=== PATIENT | male | born 1935 | race Caucasian/White ===

== ENCOUNTER 2020-01-25 04:25 | Emergency (ER) | payer OTHER ==
[~2020-01-25] VITALS: Ht 182.9 cm; Wt 81.6 kg
[~2020-01-25 04:25] MED LIST: ASPI-605 PO; ATEN50TA PO; ATOR20TA PO
--- NOTE | 2020-01-25 04:51 | NUR ---
PT AAOX4. [facility]RA FROM [facility] C/O HIGH BLOOD PRESSURE, ASYMPTOMATIC, SBP 210'S. 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 PER ASSESSMENT DENIES CP. NO ACUTE DISTRESS NOTED. MD AT BEDSIDE FOR EVAL. AWAITING ORDERS.
--- NOTE | 2020-01-25 04:55 | NUR ---
NET FRONT END DEVELOPER AT BEDSIDE FOR LABS
--- NOTE | 2020-01-25 04:57 | NUR ---
RADIOLOGIST AT BEDSIDE. PT WILL BE TAKEN TO CT.
[2020-01-25 05:04] LABS: BASOPHILS % (AUTO) 0.7 % (0.0-2.0); EOSINOPHILS % (AUTO) 7.4 % (0.0-6.0); HEMATOCRIT 38 % (39-51); HEMOGLOBIN 12.8 g/dL (13.5-17.5); LYMPHOCYTES % (AUTO) 40.4 % (20.0-44.0); MEAN CORPUSCULAR HGB CONC 33 g/dl (31.0-36.0); MEAN CORPUSCULAR VOLUME 89 fL (80-96); MONOCYTES # (AUTO) 0.4 /CMM (0.1-1.30); MONOCYTES % (AUTO) 8.9 % (2.0-12.0); NEUTROPHILS # (AUTO) 2.1 /CMM (1.8-8.9); NEUTROPHILS % (AUTO) 42.6 % (43.0-81.0); PLATELET COUNT (AUTO) 215 /CMM (150-450); RED BLOOD CELL COUNT(AUTO) 4.31 MIL/uL (4.5-6.0); WHITE BLOOD COUNT (AUTO) 4.9 K/uL (4.3-11.0)
[2020-01-25 05:18] LABS: ALANINE AMINOTRANSFERASE 36 U/L (12-78); ALBUMIN 3.6 g/dL (3.4-5.0); ALKALINE PHOSPHATASE 66 U/L (46-116); ASPARTATE AMINOTRANSFERASE 36 U/L (15-37); BILIRUBIN,TOTAL 0.3 mg/dL (0.2-1.0); CALCIUM, SERUM 9.1 mg/dL (8.5-10.1); CARBON DIOXIDE 27 mmol/L (21-32); CHLORIDE 101 mmol/L (98-107); GLUCOSE 104 mg/dL (74-106); POTASSIUM 4.7 mmol/L (3.5-5.1); SODIUM SERUM 137 mmol/L (136-145); TOTAL PROTEIN, SERUM 7.6 g/dL (6.4-8.2); UREA NITROGEN, BLOOD 23 mg/dL (7-18)
[2020-01-25 06:02] VITALS: BP 151/62
--- NOTE | 2020-01-25 06:02 | NUR ---
Patient discharged to home in stable condition. Written and verbal after care instructions given. Patient verbalizes understanding of instruction. IV removed. Catheter intact and site benign. Pressure and 4x4 applied to site. No bleeding noted. Pt ambulated with steday gait. vss.
== END 2020-01-25 06:02 | disposition home or self-care (01) ==
LOC: ER 04:25
DX: I16.0 Hypertensive urgency (principal); R51 Headache; Z98.890 Other specified postprocedural states; Z88.0 Allergy status to penicillin; Z79.82 Long term (current) use of aspirin; Z79.899 Other long term (current) drug therapy
CPT/HCPCS: 36415; 70450-TC; 71045-TC; 80048-TC; 80076-TC; 83880; 84484-TC; 85025-TC; 85730-TC

== ENCOUNTER 2020-10-12 15:44 | Emergency (ER) | payer OTHER ==
[~2020-10-12] VITALS: Ht 177.8 cm; Wt 83.9 kg
--- NOTE | 2020-10-12 15:48 | NUR ---
pt beth from home, per ems report, pt was c/o weakness, noted to be pale and was vomiting. pt was given zofran ivp captain waiter. noted facial drooping which per family states normal. hx of bells palsy. no focal weakness noted. vitals stable. dr overton in to see patient. w/ orders, will carry out.
--- NOTE | 2020-10-12 16:15 | NUR ---
still unable to provide urine specimen at this time. urinal provided.
--- NOTE | 2020-10-12 16:22 | NUR ---
public works laborer at bedside for blood draw.
[2020-10-12 16:30] LABS: BASOPHILS % (AUTO) 0.8 % (0.0-2.0); EOSINOPHILS % (AUTO) 4.9 % (0.0-6.0); HEMATOCRIT 34 % (39-51); HEMOGLOBIN 11.5 g/dL (13.5-17.5); LYMPHOCYTES # (AUTO) 1.4 /CMM (0.8-4.8); LYMPHOCYTES % (AUTO) 23.9 % (20.0-44.0); MEAN CORPUSCULAR HGB CONC 34 g/dl (31.0-36.0); MEAN CORPUSCULAR VOLUME 90 fL (80-96); MONOCYTES # (AUTO) 0.5 /CMM (0.1-1.30); MONOCYTES % (AUTO) 9.6 % (2.0-12.0); NEUTROPHILS # (AUTO) 3.4 /CMM (1.8-8.9); NEUTROPHILS % (AUTO) 60.8 % (43.0-81.0); PLATELET COUNT (AUTO) 191 /CMM (150-450); RED BLOOD CELL COUNT(AUTO) 3.79 MIL/uL (4.5-6.0); WHITE BLOOD COUNT (AUTO) 5.7 K/uL (4.3-11.0)
[2020-10-12 16:40] LABS: CALCIUM, SERUM 9.6 mg/dL (8.5-10.1); CARBON DIOXIDE 28 mmol/L (21-32); CHLORIDE 102 mmol/L (98-107); CREATININE 1.3 mg/dL (0.6-1.3); GLUCOSE 132 mg/dL (74-106); POTASSIUM 4.5 mmol/L (3.5-5.1); SODIUM SERUM 138 mmol/L (136-145); UREA NITROGEN, BLOOD 31 mg/dL (7-18)
[2020-10-12 16:45] LABS: ALANINE AMINOTRANSFERASE 18 U/L (12-78); ALBUMIN 3.2 g/dL (3.4-5.0); ALKALINE PHOSPHATASE 58 U/L (46-116); ASPARTATE AMINOTRANSFERASE 22 U/L (15-37); BILIRUBIN,DIRECT 0.1 mg/dL (0.0-0.2); BILIRUBIN,TOTAL 0.2 mg/dL (0.2-1.0); LIPASE 241 U/L (73-393); TOTAL PROTEIN, SERUM 6.8 g/dL (6.4-8.2)
--- NOTE | 2020-10-12 17:33 | NUR ---
Patient discharged to home in stable condition. Written and verbal after care instructions given. Patient verbalizes understanding of instruction.IV removed. Catheter intact and site benign. Pressure and 4x4 applied to site. No bleeding noted.
[2020-10-12 17:34] VITALS: BP 146/97
== END 2020-10-12 17:34 | disposition home or self-care (01) ==
LOC: ER 15:52
DX: R79.89 Other specified abnormal findings of blood chemistry (principal); R11.10 Vomiting, unspecified; R42 Dizziness and giddiness; I10 Essential (primary) hypertension; Z98.890 Other specified postprocedural states; Z88.0 Allergy status to penicillin; Z79.82 Long term (current) use of aspirin; Z79.899 Other long term (current) drug therapy
CPT/HCPCS: 36415; 80048-TC; 80076-TC; 83690-TC; 84484-TC; 85025-TC